=== PATIENT | female | born 1950 | race Caucasian/White ===

== ENCOUNTER → 2018-12-21 | Outpatient (CLI) | payer OTHER ==
[~2018-12-21] MED LIST: BACTRIM DS TAB1 EACH PO; GLUCOPHAGE XR500 MG PO; MIRALAX255 GM PO; NORCO 5-325 TA1 EACH PO; TIROSINT50 MCG PO; ZOCOR 20 MG TAB20 M1 PO
== END ==
LOC: M.ULTRA 07:54
DX: N95.0 Postmenopausal bleeding (principal)